=== PATIENT | female | born 1980 | race Caucasian/White ===

== ENCOUNTER 2016-06-20 09:16 | Outpatient (CLI) | payer OTHER ==
[~2016-06-20 09:16] MED LIST: PERMETHRIN; [UNRECOGNIZED DRUG - OTHER]
[2016-06-20 09:40] LABS: BASOPHILS # (AUTO) 0.1 K/uL (0.00-0.22); BASOPHILS % (AUTO) 1.9 % (0.0-2.0); EOSINOPHILS # (AUTO) 0.2 K/uL (0-0.4); EOSINOPHILS % (AUTO) 2.4 % (0.0-4.0); HEMATOCRIT 39.9 % (36-48); HEMOGLOBIN 12.8 g/dL (12.0-16.0); LYMPHOCYTES # (AUTO) 1.6 K/uL (2.5-16.5); LYMPHOCYTES % (AUTO) 23.5 % (20.5-51.1); MEAN CORPUSCULAR HEMOGLOBIN 28 pg (27-31); MEAN CORPUSCULAR HGB CONC 32 g/dL (33-37); MEAN CORPUSCULAR VOLUME 86 fL (80-94); MONOCYTES # (AUTO) 0.3 K/uL (0.8-1.0); MONOCYTES % (AUTO) 4.8 % (1.7-9.3); NEUTROPHILS # (AUTO) 4.5 K/uL (1.8-7.7); NEUTROPHILS % (AUTO) 67.4 % (42.2-75.2); PLATELET COUNT (AUTO) 315 K/uL (140-450); RED BLOOD CELL COUNT(AUTO) 4.63 MIL/uL (4.20-5.40); RED CELL DISTRIBUTION WIDTH 13.4 % (11.6-13.7); WHITE BLOOD COUNT (AUTO) 6.7 K/uL (4.8-10.8)
[2016-06-20 10:00] LABS: ALBUMIN 3.9 g/dL (3.4-5.0); CALCIUM 8.4 mg/dL (8.5-10.1); CARBON DIOXIDE 28.9 mmol/L (21-32); CHOL/HDL RATIO 2.2 (1-4.5); CREATININE 0.6 mg/dL (0.6-1.3); POTASSIUM 3.9 mmol/L (3.5-5.1); TOTAL BILIRUBIN 0.5 mg/dL (0.0-1.0)
[2016-06-21 09:07] LABS: HEPATITIS C VIRUS ANTIBODY 0.1 s/co ratio (0.0-0.9)
[2016-06-21 15:40] LABS: VITAMIN D, 25-HYDROXY 15.8 ng/mL (30.0-100.0)
[2016-06-21 15:41] LABS: HIV 1/0/2 ABS, QUAL Non-reactive (Non Reactiv)
[2016-06-22 06:18] LABS: CHLAMYDIA TRACHOMATIS AMP DNA Negative (Negative)
== END 2016-06-20 20:15 | disposition home or self-care (01) ==
LOC: MLB 09:16
PROVIDERS: ATTEND Internal Medicine Geriatric Medicine
DX: Z01.419 Encounter for gynecological examination (general) (routine) without abnormal findings (principal); Z11.59 Encounter for screening for other viral diseases; E55.9 Vitamin D deficiency, unspecified
CPT/HCPCS: 36415; 80053; 82306; 85025; 86592; 86702; 86803; 87491

== ENCOUNTER 2017-10-11 09:58 | Emergency (ER) | payer OTHER ==
[~2017-10-11] VITALS: Ht 167.6 cm; Wt 59.9 kg
[2017-10-11 10:11] VITALS: BP 148/78
--- NOTE | 2017-10-11 10:15 | NUR ---
PT AMB TO BED 8
--- NOTE | 2017-10-11 10:18 | NUR ---
36/F BIB SELF WITH C/O RIGHT OUTER FOOT PAIN X 5 DAY. STUBBED 4TH AND 5TH TOE WITH DUMBBELL.CAP REFILL <3 SEC. AAOX4 WITH EVEN AND STEADY GAIT; LUNGS CLEAR BL. PATIENT STATES PAIN OF 7/10 AT THIS TIME. PATIENT POSITIONED FOR COMFORT; HOB ELEVATED; BEDRAILS UP X2; BED DOWN. ER MD MADE AWARE OF PT STATUS.
--- NOTE | 2017-10-11 10:18 | NUR ---
Note undone in EDM - 10/11/17 at 1029 by [email or web address] 36/F BIB SELF WITH C/O RIGHT OUTTER FOOT PAIN X 5 DAY. STUBBED 4TH AND 5TH TOE WITH DUMBBELL.CAP REFILL <3 SEC. AAOX4 WITH EVEN AND STEADY GAIT; LUNGS CLEAR BL. PATIENT STATES PAIN OF 7/10 AT THIS TIME. PATIENT POSITIONED FOR COMFORT; HOB ELEVATED; BEDRAILS UP X2; BED DOWN. ER MADE AWARE OF PT STATUS.
--- NOTE | 2017-10-11 10:38 | NUR ---
X RAY AT BEDSIDE.
--- NOTE | 2017-10-11 11:14 | NUR ---
Patient being evaluated by DR GRAYSON at bedside.
[2017-10-11 11:23] VITALS: BP 130/85
== END 2017-10-11 11:23 | disposition home or self-care (01) ==
LOC: MED 09:58
DX: S90.121A Contusion of right lesser toe(s) without damage to nail, initial encounter (principal); W22.8XXA Striking against or struck by other objects, initial encounter; Y93.89 Activity, other specified; Y92.89 Other specified places as the place of occurrence of the external cause; Y99.8 Other external cause status
CPT/HCPCS: 73630; 99284

== ENCOUNTER 2020-12-01 08:41 | Outpatient (CLI) | payer OTHER ==
[2020-12-01 09:31] LABS: BASOPHILS # (AUTO) 0.1 K/uL (0.00-0.22); EOSINOPHILS # (AUTO) 0.2 K/uL (0-0.4); LYMPHOCYTES # (AUTO) 2.3 K/uL (2.5-16.5); MEAN CORPUSCULAR HEMOGLOBIN 28 pg (27-31); MONOCYTES # (AUTO) 0.3 K/uL (0.8-1.0)
[2020-12-01 09:34] LABS: ALBUMIN 3.8 g/dL (3.4-5.0); ANION GAP 7.4 (8-16); CARBON DIOXIDE 29.1 mmol/L (21-32); CHOL/HDL RATIO 2.3 (1-4.5); CREATININE 0.7 mg/dL (0.6-1.3); POTASSIUM 3.5 mmol/L (3.5-5.1); THYROID STIMULATING HORMONE 16.91 uIU/mL (0.34-3.74); TOTAL BILIRUBIN 0.6 mg/dL (0.0-1.0)
[2020-12-01 10:28] LABS: BASOPHILS % (AUTO) 1.1 % (0.0-2.0); EOSINOPHILS % (AUTO) 2.8 % (0.0-4.0); HEMATOCRIT 42.4 % (36-48); HEMOGLOBIN 13.9 g/dL (12.0-16.0); MEAN CORPUSCULAR HGB CONC 33 g/dL (33-37); MEAN CORPUSCULAR VOLUME 86.5 fL (80-94); MONOCYTES % (AUTO) 4.9 % (1.7-9.3); NEUTROPHILS # (AUTO) 2.9 K/uL (1.8-7.7); NEUTROPHILS % (AUTO) 50.2 % (42.2-75.2); PLATELET COUNT (AUTO) 306 K/uL (140-450); RED CELL DISTRIBUTION WIDTH 13.8 % (11.6-13.7); WHITE BLOOD COUNT (AUTO) 5.7 K/uL (4.8-10.8)
== END 2020-12-01 21:56 | disposition home or self-care (01) ==
LOC: MLB 08:41
PROVIDERS: ATTEND Internal Medicine Geriatric Medicine
DX: N92.6 Irregular menstruation, unspecified (principal); Z00.00 Encounter for general adult medical examination without abnormal findings
CPT/HCPCS: 36415; 80053; 82306; 83036; 84443; 84702; 85025

== ENCOUNTER 2023-03-04 09:36 | Outpatient (CLI) | payer OTHER ==
[2023-03-04 11:02] LABS: FREE T4 (FREE THYROXINE) 0.91 ng/dL (0.76-1.46); THYROID STIMULATING HORMONE 1.1 uIU/mL (0.34-3.74)
[2023-03-05 08:08] LABS: ESTRADIOL SERUM 88.4 pg/mL (.); FOLLICLE STIMULATING HORMONE 43.4 mIU/mL (.); PROLACTIN 16.4 ng/mL (4.8-23.3)
== END 2023-03-04 16:34 | disposition home or self-care (01) ==
LOC: MLB 09:36
PROVIDERS: ATTEND Physician Assistant Medical
DX: R10.2 Pelvic and perineal pain (principal)
CPT/HCPCS: 36415; 82670; 83001; 83002; 84146; 84439; 84443

== ENCOUNTER 2024-01-11 08:01 | Emergency (ER) | payer OTHER ==
[~2024-01-11] VITALS: Ht 167.6 cm; Wt 66.2 kg
[2024-01-11 08:11] VITALS: BP 137/78; PULSE 62; RESP 16; TEMP 97; O2SAT 98
[2024-01-11] MEDS ORDERED: CYCL-711 PO (08:47)
[2024-01-11] MEDS ORDERED: DICL20GE TP (08:47)
[2024-01-11] MEDS ORDERED: IBUP-2218 PO (08:47)
[2024-01-11] MEDS ORDERED: LIDO5CRE19 TP (08:47)
[2024-01-11] MEDS: LIDOCAINE 5% 1 EA PATCH TP ONE (08:51)
[2024-01-11] MEDS: CYCLOBENZAPRINE 10 MG TAB PO ONE (08:51)
[2024-01-11] MEDS: KETOROLAC 30 MG/ML VIAL IM ONE (08:53)
[2024-01-11 09:11] VITALS: BP 135/78; PULSE 65; RESP 16; TEMP 97.7; O2SAT 99
== END 2024-01-11 09:10 | disposition home or self-care (01) ==
LOC: MED 08:01
DX: M62.830 Muscle spasm of back (principal)
CPT/HCPCS: 81025; 96372; 99283; J1885